=== PATIENT | female | born 1975 | race American Indian/Alaskan Native ===

== ENCOUNTER 2017-06-06 11:11 | Outpatient (CLI) | payer BC | END 2017-06-06 11:12 | disposition home or self-care (01) | LOC: LABHHL 11:11 | PROVIDERS: ATTEND Obstetrics & Gynecology | DX: N85.00 Endometrial hyperplasia, unspecified (principal) | CPT/HCPCS: 88305 ==

== ENCOUNTER 2017-10-18 06:57 | Outpatient (CLI) | payer BC ==
[2017-10-18 08:07] LABS: Basophils % (Auto) 0.6 % (0.0-1.8); Hematocrit 32.9 % (30.3-42.9); Hemoglobin 10.9 gm/dl (10.1-14.3); Mean Corpuscular HGB Conc 33 % (30-34); Mean Corpuscular Hemoglobin 29 pg (28-32); Mean Corpuscular Volume 87 fl (79-97); Platelet Count 310 K/mm3 (140-440); Red Blood Count 3.81 M/mm3 (3.65-5.03); Red Cell Distribution Width 17.8 % (13.2-15.2); White Blood Count 5.2 K/mm3 (4.5-11.0)
[2017-10-18 08:26] LABS: Alanine Aminotransferase 10 units/L (7-56); Albumin 3.4 g/dL (3.9-5); Albumin/Globulin Ratio 0.9 %; Alkaline Phosphatase 49 units/L (35-129); Anion Gap 16 mmol/L; BUN/Creatinine Ratio 11; Blood Urea Nitrogen 8 mg/dL (7-17); Calcium 8.8 mg/dL (8.4-10.2); Carbon Dioxide 24 mmol/L (22-30); Chloride 102.9 mmol/L (98-107); Cholesterol 181 mg/dL (50-199); Glucose 85 mg/dL (65-100); HDL Cholesterol 67 mg/dL (40-59); LDL Cholesterol,Direct 94 mg/dL (50-130); Potassium 3.8 mmol/L (3.6-5.0); Sodium 139 mmol/L (137-145); Total Protein 7.4 g/dL (6.3-8.2); Triglycerides 104 mg/dL (2-149)
--- NOTE | 2017-10-18 15:53 | Mammography Report ---
Bilateral digital screening mammogram with CAD. Comparison study is dated August 20, 2016. Scattered fibroglandular densities are present. In the upper-outer quadrant of the right breast, there is a new small somewhat rounded parenchymal asymmetry. No architectural distortion or suspicious calcifications. Left breast is unremarkable. Impression: Right parenchymal asymmetry. BI-RADS code: 0. Recommendation: Spot compression images, 90 degree view, and ultrasound if needed.
[2017-10-24 13:28] LABS: Vitamin D, 25-OH, Total 34 ng/mL (30-100)
== END 2017-10-18 06:58 | disposition home or self-care (01) ==
LOC: MAMMO 06:57
PROVIDERS: ATTEND Internal Medicine
DX: Z12.31 Encounter for screening mammogram for malignant neoplasm of breast (principal); I10 Essential (primary) hypertension
CPT/HCPCS: 36415; 80053; 80061; 82306; 84443; 85025; G0202; 77067

== ENCOUNTER 2017-10-31 06:17 | Outpatient (CLI) | payer BC ==
--- NOTE | 2017-10-31 10:08 | Mammography Report ---
Right mammogram: Additional imaging performed based on screening exam of October 18. The asymmetry identified on recent screening exam is no longer present with the additional compression images. No significant change identified when compared to prior exam in 2016. Impression: No significant findings. Recommendation: Annual mammogram followup. BI-RADS CATEGORY: 1 = Negative ACR BI-RADS MAMMOGRAPHIC CODES: 0 = Needs additional imaging evaluation; 1 = Negative; 2 = Benign; 3 = Probably benign; 4 = Suspicious; 5 = Malignant; 6 = Known biopsy-proven malignancy COMMENT: 1. Dense breast tissue, i.e., adenosis, fibrocystic changes, etc., may obscure an underlying neoplasm. 2. Approximately 10% of cancers are not detected with mammography. 3. A negative mammography report should not delay biopsy if a clinically suspicious mass is present.
== END 2017-10-31 06:18 | disposition home or self-care (01) ==
LOC: MAMMO 06:17
PROVIDERS: ATTEND Nurse Practitioner
DX: R92.8 Other abnormal and inconclusive findings on diagnostic imaging of breast (principal); I10 Essential (primary) hypertension; D64.9 Anemia, unspecified
CPT/HCPCS: G0206-RT

== ENCOUNTER 2018-02-04 02:03 | Emergency (ER) | payer BC ==
[2018-02-04 02:45] VITALS: BP 154/101
[2018-02-04] MEDS ORDERED: NORCO 5/325 ONE (05:13)
[2018-02-04] MEDS ORDERED: ZOFRAN ODT ONE (05:13)
[2018-02-04] MEDS ORDERED: ZOFRAN ODT PO ONE (05:31)
[2018-02-04] MEDS ORDERED: NORCO 5/325 PO ONE ×2 (05:31→05:33)
--- NOTE | 2018-02-04 05:33 | Emergency Department Report ---
ED ENT HPI - General Chief complaint: Dental/Oral Stated complaint: TOOTHACHE Time Seen by Provider: 02/04/18 04:36 Source: patient Mode of arrival: Ambulatory Limitations: No Limitations - History of Present Illness Initial comments: 42-year-old female past medical history hypertension presents with complaint of left upper toothache for 3-4 days. Patient is awake alert and oriented 3 fully lucid drooling or trismus noted on exam. Patient denies any pus or blood drainage from mouth. Denies fevers chills nausea or vomiting. States that pain is currently 7 out of 10. Patient states she took Tylenol with codeine and Motrin at home with minimal relief of her symptoms. She states she has artery plan to see a dentist in 4 days for urination and possible root canal of this tooth. Patient states she had a filling in this tooth which has come loose and needs to be addressed. MD complaint: tooth pain Onset/Timin -: days(s) Severity: moderate Quality: aching Consistency: constant Worsens with: eating Context- Dental: history of dental caries, poor dental care - Related Data Home Medications Medication Instructions Recorded Confirmed Last Taken Losartan Potassium 100 mg PO DAILY 11/03/16 11/10/16 11/09/16 23:55 Previous Rx's Medication Instructions Recorded Last Taken Type Ibuprofen [Motrin] 800 mg PO Q8HR PRN #60 tablet 11/10/16 Unknown Rx oxyCODONE /ACETAMINOPHEN [Percocet 1 tab PO Q6HR PRN #30 tablet 11/10/16 Unknown Rx 5/325] Amoxicillin [Trimox CAP] 500 mg PO Q8H #21 capsule 02/04/18 Unknown Rx Benzocaine [Orajel Liquid 20%] 1 ml MM Q6HR PRN #1 bottle 02/04/18 Unknown Rx Chlorhexidine Mouthwash [Peridex] 15 ml MM BID #1 bottle 02/04/18 Unknown Rx HYDROcodone/APAP 5-325 [[place] 1 each PO Q6HR PRN #12 tablet 02/04/18 Unknown Rx 5/325] Ibuprofen [Motrin] 600 mg PO Q8H PRN #20 tablet 02/04/18 Unknown Rx Ondansetron [Zofran Odt] 4 mg PO Q8H PRN #10 tab.rapdis 02/04/18 Unknown Rx metroNIDAZOLE [Metronidazole] 500 mg PO BID #14 tablet 02/04/18 Unknown Rx Allergies Allergy/AdvReac Type Severity Reaction Status Date / Time latex AdvReac Swelling Verified 11/10/16 07:06 ED Dental HPI - General Chief complaint: Dental/Oral Stated complaint: TOOTHACHE Time Seen by Provider: 02/04/18 04:36 Source: patient Mode of arrival: Ambulatory Limitations: No Limitations - Related Data Home Medications Medication Instructions Recorded Confirmed Last Taken Losartan Potassium 100 mg PO DAILY 11/03/16 11/10/16 11/09/16 23:55 Previous Rx's Medication Instructions Recorded Last Taken Type Ibuprofen [Motrin] 800 mg PO Q8HR PRN #60 tablet 11/10/16 Unknown Rx oxyCODONE /ACETAMINOPHEN [Percocet 1 tab PO Q6HR PRN #30 tablet 11/10/16 Unknown Rx 5/325] Amoxicillin [Trimox CAP] 500 mg PO Q8H #21 capsule 02/04/18 Unknown Rx Benzocaine [Orajel Liquid 20%] 1 ml MM Q6HR PRN #1 bottle 02/04/18 Unknown Rx Chlorhexidine Mouthwash [Peridex] 15 ml MM BID #1 bottle 02/04/18 Unknown Rx HYDROcodone/APAP 5-325 [[place] 1 each PO Q6HR PRN #12 tablet 02/04/18 Unknown Rx 5/325] Ibuprofen [Motrin] 600 mg PO Q8H PRN #20 tablet 02/04/18 Unknown Rx Ondansetron [Zofran Odt] 4 mg PO Q8H PRN #10 tab.rapdis 02/04/18 Unknown Rx metroNIDAZOLE [Metronidazole] 500 mg PO BID #14 tablet 02/04/18 Unknown Rx Allergies Allergy/AdvReac Type Severity Reaction Status Date / Time latex AdvReac Swelling Verified 11/10/16 07:06 ED Review of Systems ROS: Stated complaint: TOOTHACHE Other details as noted in HPI Constitutional: denies: chills, fever Eyes: denies: eye pain, eye discharge, vision change ENT: dental pain. denies: ear pain, throat pain Respiratory: denies: cough, shortness of breath, wheezing Cardiovascular: denies: chest pain, palpitations Endocrine: no symptoms reported Gastrointestinal: denies: abdominal pain, nausea, diarrhea Genitourinary: denies: urgency, dysuria, discharge Musculoskeletal: denies: back pain, joint swelling, arthralgia Skin: denies: rash, lesions Neurological: denies: headache, weakness, paresthesias Psychiatric: denies: anxiety, depression Hematological/Lymphatic: denies: easy bleeding, easy bruising ED Past Medical Hx - Past Medical History Hx Hypertension: Yes Hx Renal Disease: No Hx Sickle Cell Disease: Yes (trait only) Hx Seizures: No Hx Asthma: No - Surgical History Past Surgical History?: No - Social History Smoking Status: Never Smoker Substance Use Type: None - Medications Home Medications: Home Medications Medication Instructions Recorded Confirmed Last Taken Type Losartan Potassium 100 mg PO DAILY 11/03/16 11/10/16 11/09/16 23:55 History Ibuprofen [Motrin] 800 mg PO Q8HR PRN #60 tablet 11/10/16 Unknown Rx oxyCODONE /ACETAMINOPHEN [Percocet 1 tab PO Q6HR PRN #30 tablet 11/10/16 Unknown Rx 5/325] Amoxicillin [Trimox CAP] 500 mg PO Q8H #21 capsule 02/04/18 Unknown Rx Benzocaine [Orajel Liquid 20%] 1 ml MM Q6HR PRN #1 bottle 02/04/18 Unknown Rx Chlorhexidine Mouthwash [Peridex] 15 ml MM BID #1 bottle 02/04/18 Unknown Rx HYDROcodone/APAP 5-325 [[place] 1 each PO Q6HR PRN #12 tablet 02/04/18 Unknown Rx 5/325] Ibuprofen [Motrin] 600 mg PO Q8H PRN #20 tablet 02/04/18 Unknown Rx Ondansetron [Zofran Odt] 4 mg PO Q8H PRN #10 tab.rapdis 02/04/18 Unknown Rx metroNIDAZOLE [Metronidazole] 500 mg PO BID #14 tablet 02/04/18 Unknown Rx ED Physical Exam - General Limitations: No Limitations General appearance: alert, in no apparent distress - Head Head exam: Present: atraumatic, normocephalic - Eye Eye exam: Present: normal appearance, PERRL, EOMI - ENT ENT exam: Present: mucous membranes moist - Expanded ENT Exam Expanded Teeth exam: Present: dental tenderness # 1 - Dental Tenderness (cavity here) - Neck Neck exam: Present: normal inspection - Respiratory Respiratory exam: Present: normal lung sounds bilaterally. Absent: respiratory distress - Cardiovascular Cardiovascular Exam: Present: regular rate, normal rhythm. Absent: systolic murmur, diastolic murmur, rubs, gallop - GI/Abdominal GI/Abdominal exam: Present: soft, normal bowel sounds - Extremities Exam Extremities exam: Present: normal inspection - Back Exam Back exam: Present: normal inspection - Neurological Exam Neurological exam: Present: alert, oriented X3 - Psychiatric Psychiatric exam: Present: normal affect, normal mood - Skin Skin exam: Present: warm, dry, intact, normal color. Absent: rash ED Course Vital Signs 02/04/18 02:36 Temperature 98.6 F Pulse Rate 74 Respiratory 18 Rate Blood Pressure 154/101 O2 Sat by Pulse 100 Oximetry ED Medical Decision Making - Medical Decision Making A/P: dental cavities, toothache 1- Motrin when necessary, amoxicillin course, Orajel when necessary, Peridex mouthwash daily basis, short course [place] when necessary, short course Zofran when necessary 2-patient states she has follow-up with a dentist in 4 days this week for possible root canal of tooth with cavity 3- no clinical signs of facial abscess, no Rd's angina, no induration or cellulitis of floor of mouth or tongue 4- patient able to tolerate by mouth before discharge 5- no signs of facial infection. Advised patient that if she does not take antibiotics with follow-up with a dentist as soon as possible that a can result in potentially serious or dangerous infection to develop in jaw or face. Patient stated that she understood these instructions. I advised patient to return to the ED for any persistent unrelenting nausea or vomiting fever or chills or headaches. Critical care attestation.: If time is entered above; I have spent that time in minutes in the direct care of this critically ill patient, excluding procedure time. ED Disposition Clinical Impression: Toothache Disposition: TO HOME OR SELFCARE Is pt being admited?: No Does the pt Need Aspirin: No Condition: Stable Instructions: Dental Caries (ED), Toothache (ED) Prescriptions: Amoxicillin [Trimox CAP] 500 mg PO Q8H #21 capsule Benzocaine [Orajel Liquid 20%] 1 ml MM Q6HR PRN #1 bottle PRN Reason: Toothache Chlorhexidine Mouthwash [Peridex] 15 ml MM BID #1 bottle HYDROcodone/APAP 5-325 [[place] 5/325] 1 each PO Q6HR PRN #12 tablet PRN Reason: Pain Ibuprofen [Motrin] 600 mg PO Q8H PRN #20 tablet PRN Reason: Pain metroNIDAZOLE [Metronidazole] 500 mg PO BID #14 tablet Ondansetron [Zofran Odt] 4 mg PO Q8H PRN #10 tab.rapdis PRN Reason: Nausea Referrals: [facility] [Outside] - 3-5 Days Forms: Work/School Release Form(ED) Time of Disposition: 05:35
[2018-02-04] MEDS ORDERED: LIDOCAINE VISCOUS 2% MM NR (05:45)
== END 2018-02-04 05:51 | disposition home or self-care (01) ==
LOC: ED 02:03
DX: K08.89 Other specified disorders of teeth and supporting structures (principal); I10 Essential (primary) hypertension; Z91.040 Latex allergy status
CPT/HCPCS: 99282; Q0162

== ENCOUNTER 2018-04-07 08:20 | Outpatient (CLI) | payer BC ==
--- NOTE | 2018-04-12 12:53 | Ultrasound Report ---
Pelvic ultrasound: Abnormal uterine bleeding. Endovaginal and transabdominal imaging demonstrates an anteverted uterus measuring approximately 7.5 x 7.8 x 12.9 cm. There are 3 solid uterine masses identified. One is exophytic lesion extending from the fundus measuring 5.7 cm. There are 2 additional masses in the mid uterus. Anteriorly it measures 4.4 cm and posteriorly 4.6 cm. The uterus is otherwise obscured by the masses. A short segment of endometrium is questionably identified and has a thickness of 2.1 mm. Several nabothian cysts are present in the cervix. The ovaries are not visualized by either approach. No free fluid identified. Impression: 1. Multiple uterine fibroids. 2. Limited visualization of the endometrium which appears to be of normal thickness. 3. Nonvisualized ovaries.
== END 2018-04-07 08:21 | disposition home or self-care (01) ==
LOC: SPVWC 08:20
PROVIDERS: ATTEND Obstetrics & Gynecology
DX: D25.9 Leiomyoma of uterus, unspecified (principal); N93.8 Other specified abnormal uterine and vaginal bleeding; D64.9 Anemia, unspecified; I10 Essential (primary) hypertension; E66.9 Obesity, unspecified
CPT/HCPCS: 76830; 76856

== ENCOUNTER 2018-05-15 06:57 | Outpatient (CLI) | payer BC ==
[2018-05-15 07:41] LABS: Blood Urea Nitrogen 14 mg/dL (7-17)
== END 2018-05-15 06:58 | disposition home or self-care (01) ==
LOC: MRI 06:57
PROVIDERS: ATTEND Radiology Vascular & Interventional Radiology
DX: R10.2 Pelvic and perineal pain (principal); N93.9 Abnormal uterine and vaginal bleeding, unspecified; I10 Essential (primary) hypertension; E66.9 Obesity, unspecified; D64.9 Anemia, unspecified
CPT/HCPCS: 36415; 82565; 84520

== ENCOUNTER 2019-09-07 06:23 | Outpatient (CLI) | payer BC ==
[2019-09-07 06:43] LABS: Basophils % (Auto) 1.1 % (0.0-1.8); Eosinophils # (Auto) 0.1 K/mm3 (0.0-0.4); Eosinophils % (Auto) 2.2 % (0.0-4.3); Hematocrit 37.2 % (30.3-42.9); Hemoglobin 12.1 gm/dl (10.1-14.3); Lymphocytes % (Auto) 46.6 % (13.4-35.0); Mean Corpuscular HGB Conc 33 % (30-34); Mean Corpuscular Volume 88 fl (79-97); Monocytes # (Auto) 0.4 K/mm3 (0.0-0.8); Monocytes % (Auto) 8.9 % (0.0-7.3); Platelet Count 369 K/mm3 (140-440); Red Blood Count 4.25 M/mm3 (3.65-5.03); Red Cell Distribution Width 15.1 % (13.2-15.2)
[2019-09-07 06:55] LABS: Alanine Aminotransferase 6 units/L (7-56); Albumin 3.6 g/dL (3.9-5); BUN/Creatinine Ratio 16; Blood Urea Nitrogen 14 mg/dL (7-17); Calcium 9.2 mg/dL (8.4-10.2); Chol/HDL Ratio 2.89 %; HDL Cholesterol 75 mg/dL (40-59); Hemolysis Index 0; LDL Cholesterol,Direct 141 mg/dL (50-130)
[2019-09-07 07:02] LABS: Free T4 (Free Thyroxine) 1.23 ng/dL (0.76-1.46)
[2019-09-12 13:31] LABS: Vitamin D, 25-OH, D2 <4 ng/mL
== END 2019-09-07 06:24 | disposition home or self-care (01) ==
LOC: LAB 06:23
DX: Z01.419 Encounter for gynecological examination (general) (routine) without abnormal findings (principal); I10 Essential (primary) hypertension
CPT/HCPCS: 36415; 80053; 80061; 82306; 84439; 84443; 85025

== ENCOUNTER 2019-11-08 12:48 | Outpatient (CLI) | payer BC ==
--- NOTE | 2019-11-08 15:02 | Mammography Report ---
DIGITAL SCREENING MAMMOGRAM WITH CAD, 11/08/2019 INDICATION: Routine screening mammography. TECHNIQUE: Digital bilateral 2D mammography was obtained in the craniocaudal and mediolateral obliq ue projections. This examination was interpreted with the benefit of Computer-Aided Detection analysi s. COMPARISON: 11/02/2018 FINDINGS: Breast Density: There are scattered areas of fibroglandular density. There is no evidence of dominant mass, suspicious calcifications or architectural distortion in eithe r breast. IMPRESSION: No mammographic evidence of malignancy. Follow up recommendation: Routine yearly BI-RADS Category 1: Negative. A "normal" or negative report should not discourage follow up or biopsy of a clinically significant f inding. A written summary of these findings will be mailed to the patient. The patient will be entered into a mammography reporting system which will generate a reminder letter for the patient's next appointmen t at the appropriate interval. The [employer] recommends yearly mammograms starting at age 40 and continuing as l thompson as a woman is in good health. Breast MRI is recommended for women with an approximate 20-25% or greater lifetime risk of breast cancer, including women with a strong family history of breast or ova mary cancer or who have been treated for Hodgkin's disease. Signer Name: Jabari Angel MD Signed: 11/08/2019 2:58 PM Workstation Name: [id number]
== END 2019-11-08 12:49 | disposition home or self-care (01) ==
LOC: MAMMO 12:48
PROVIDERS: ATTEND Internal Medicine
DX: Z12.31 Encounter for screening mammogram for malignant neoplasm of breast (principal)
CPT/HCPCS: 77067

== ENCOUNTER 2020-01-14 08:23 | Outpatient (CLI) | payer BC ==
--- NOTE | 2020-01-14 15:31 | Cat Scan Report ---
CT SINUSES HISTORY: Chronic maxillary sinusitis COMPARISON: None. TECHNIQUE: Axial images of the sinuses were obtained. Coronal reformats were generated. All CT scans at this location are performed using CT dose reduction for ALARA by means of automated exposure cont rol. CONTRAST: None. FINDINGS: Nasal septum: No significant deviation. Paranasal sinuses: Clear. Ostiomeatal complex: No significant abnormality. Nasal turbinates: No significant abnormality. Visualized mastoid air cells: No significant abnormality. Visualized intracranial space: No significant abnormality. Visualized orbits: No significant abnormality. Additional findings: None. IMPRESSION: Normal exam. Signer Name: Franklyn Garcia Jr, MD Signed: 01/14/2020 3:26 PM Workstation Name: [id number]
== END 2020-01-14 08:24 | disposition home or self-care (01) ==
LOC: CT 08:23
PROVIDERS: ATTEND Otolaryngology
DX: J32.0 Chronic maxillary sinusitis (principal)
CPT/HCPCS: 70486

== ENCOUNTER 2020-10-08 08:58 | Outpatient (CLI) | payer BC ==
[2020-10-08 09:21] LABS: Basophils % (Auto) 0.8 % (0.0-1.8); Eosinophils % (Auto) 0.5 % (0.0-4.3); Hematocrit 36.3 % (30.3-42.9); Hemoglobin 11.9 gm/dl (10.1-14.3); Lymphocytes # (Auto) 1.4 K/mm3 (1.2-5.4); Mean Corpuscular HGB Conc 33 % (30-34); Mean Corpuscular Volume 89 fl (79-97); Monocytes # (Auto) 0.4 K/mm3 (0.0-0.8); Monocytes % (Auto) 7.5 % (0.0-7.3); Platelet Count 341 K/mm3 (140-440); Red Blood Count 4.07 M/mm3 (3.65-5.03); Red Cell Distribution Width 15.1 % (13.2-15.2)
[2020-10-08 09:41] LABS: Alanine Aminotransferase 11 units/L (7-56); Albumin 3.6 g/dL (3.9-5); BUN/Creatinine Ratio 14; Blood Urea Nitrogen 13 mg/dL (7-17); Calcium 9.3 mg/dL (8.4-10.2); Chol/HDL Ratio 3.02 %; HDL Cholesterol 83 mg/dL (40-59); Hemolysis Index 0; LDL Cholesterol,Direct 168 mg/dL (50-130)
== END 2020-10-08 08:59 | disposition home or self-care (01) ==
LOC: LAB 08:58
PROVIDERS: ATTEND Internal Medicine
DX: E55.9 Vitamin D deficiency, unspecified (principal); Z00.00 Encounter for general adult medical examination without abnormal findings
CPT/HCPCS: 36415; 80053; 80061; 82306; 84443; 85025

== ENCOUNTER 2020-10-13 13:27 | Emergency (ER) | payer BC ==
[2020-10-13 14:05] VITALS: BP 135/87
--- NOTE | 2020-10-13 15:25 | XRay Report ---
RIGHT ANKLE 3 VIEWS INDICATION / CLINICAL INFORMATION: ankle pain COMPARISON: None available. FINDINGS: BONES / JOINT(S): No acute fracture or subluxation. No significant arthritis. SOFT TISSUES: No significant abnormality. ADDITIONAL FINDINGS: None. Signer Name: Tuan Coffman MD Signed: 10/13/2020 3:20 PM Workstation Name: [id number]
--- NOTE | 2020-10-13 15:38 | Emergency Department Report ---
ED Lower Extremity HPI - General Chief Complaint: Extremity Problem,Nontraumatic Stated Complaint: RT ANKLE PAIN Time Seen by Provider: 10/13/20 14:13 Source: patient Mode of arrival: Ambulatory Limitations: No Limitations - History of Present Illness Initial Comments: This is a 45-year-old female nontoxic, well nourished in appearance, no acute signs of distress presents to the ED with c/o of right ankle pain 1 day. Patient denies any trauma or injuries. Patient denies any numbness, tingling, fever, chills, nausea, vomiting, chest pain, shortness of breath, headache, stiff neck. Patient denies any joint swelling or joint redness. Patient denies decreased range of motion. Patient stated has decreased gait due to pain. Patient denies any drug allergies or significant past medical history. MD Complaint: ankle injury -: days(s) Injury: Knee: Right Severity: mild Severity scale (0 -10): 8 Improves With: immobilization Worsens With: weight bearing, movement, palpation Associated Symptoms: able to partially bear weight. denies: snap/pop sensation, swelling, numbness, tingling, unable to bear weight - Related Data Home Medications Medication Instructions Recorded Confirmed Last Taken Losartan Potassium 100 mg PO DAILY 11/03/16 11/10/16 11/09/16 23:55 Previous Rx's Medication Instructions Recorded Last Taken Type Ibuprofen [Motrin] 800 mg PO Q8HR PRN #60 tablet 11/10/16 Unknown Rx oxyCODONE /ACETAMINOPHEN [Percocet 1 tab PO Q6HR PRN #30 tablet 11/10/16 Unknown Rx 5/325] Amoxicillin [Trimox CAP] 500 mg PO Q8H #21 capsule 02/04/18 Unknown Rx Benzocaine [Orajel Liquid 20%] 1 ml MM Q6HR PRN #1 bottle 02/04/18 Unknown Rx Chlorhexidine Mouthwash [Peridex] 15 ml MM BID #1 bottle 02/04/18 Unknown Rx HYDROcodone/APAP 5-325 [Bend 1 each PO Q6HR PRN #12 tablet 02/04/18 Unknown Rx 5/325] Ibuprofen [Motrin] 600 mg PO Q8H PRN #20 tablet 02/04/18 Unknown Rx Ondansetron [Zofran Odt] 4 mg PO Q8H PRN #10 tab.rapdis 02/04/18 Unknown Rx metroNIDAZOLE [Metronidazole] 500 mg PO BID #14 tablet 02/04/18 Unknown Rx Naproxen 500 mg PO Q12H PRN #12 tablet 10/13/20 Unknown Rx Allergies Allergy/AdvReac Type Severity Reaction Status Date / Time latex AdvReac Swelling Verified 11/10/16 07:06 ED Review of Systems ROS: Stated complaint: RT ANKLE PAIN Other details as noted in HPI Comment: All other systems reviewed and negative Constitutional: denies: chills, fever Eyes: denies: eye pain, eye discharge, vision change ENT: denies: ear pain, throat pain Respiratory: denies: cough, shortness of breath, wheezing Cardiovascular: denies: chest pain, palpitations Endocrine: no symptoms reported Gastrointestinal: denies: abdominal pain, nausea, diarrhea Genitourinary: denies: urgency, dysuria, discharge Musculoskeletal: denies: back pain, joint swelling, arthralgia Skin: denies: rash, lesions Neurological: denies: headache, weakness, paresthesias Psychiatric: denies: anxiety, depression Hematological/Lymphatic: denies: easy bleeding, easy bruising ED Past Medical Hx - Past Medical History Previous Medical History?: Yes Hx Hypertension: Yes Hx Renal Disease: No Hx Sickle Cell Disease: Yes (trait only) Hx Seizures: No Hx Asthma: No - Surgical History Past Surgical History?: Yes Additional Surgical History: - Social History Smoking Status: Never Smoker Substance Use Type: None - Medications Home Medications: Home Medications Medication Instructions Recorded Confirmed Last Taken Type Losartan Potassium 100 mg PO DAILY 11/03/16 11/10/16 11/09/16 23:55 History Ibuprofen [Motrin] 800 mg PO Q8HR PRN #60 tablet 11/10/16 Unknown Rx oxyCODONE /ACETAMINOPHEN [Percocet 1 tab PO Q6HR PRN #30 tablet 11/10/16 Unknown Rx 5/325] Amoxicillin [Trimox CAP] 500 mg PO Q8H #21 capsule 02/04/18 Unknown Rx Benzocaine [Orajel Liquid 20%] 1 ml MM Q6HR PRN #1 bottle 02/04/18 Unknown Rx Chlorhexidine Mouthwash [Peridex] 15 ml MM BID #1 bottle 02/04/18 Unknown Rx HYDROcodone/APAP 5-325 [Bend 1 each PO Q6HR PRN #12 tablet 02/04/18 Unknown Rx 5/325] Ibuprofen [Motrin] 600 mg PO Q8H PRN #20 tablet 02/04/18 Unknown Rx Ondansetron [Zofran Odt] 4 mg PO Q8H PRN #10 tab.rapdis 02/04/18 Unknown Rx metroNIDAZOLE [Metronidazole] 500 mg PO BID #14 tablet 02/04/18 Unknown Rx Naproxen 500 mg PO Q12H PRN #12 tablet 10/13/20 Unknown Rx ED Physical Exam - General Limitations: No Limitations General appearance: alert, in no apparent distress - Head Head exam: Present: atraumatic, normocephalic - Eye Eye exam: Present: normal appearance - Neck Neck exam: Present: normal inspection, full ROM - Respiratory Respiratory exam: Absent: respiratory distress - Cardiovascular Cardiovascular Exam: Present: regular rate. Absent: gallop - Extremities Exam Extremities exam: Present: full ROM, tenderness, normal capillary refill. Absent: joint swelling - Expanded Lower Extremity Exam Right Hip exam: Present: normal inspection, full ROM. Absent: tenderness, swelling Upper Leg exam: Present: normal inspection, full ROM. Absent: tenderness, swelling Knee exam: Present: normal inspection, full ROM. Absent: tenderness, swelling Lower Leg exam: Present: normal inspection, full ROM. Absent: tenderness, swelling Ankle exam: Present: full ROM, tenderness. Absent: swelling, abrasion, laceration, ecchymosis, deformity, crepidus, dislocation, erythema, anterior draw sign Foot/Toe exam: Present: normal inspection, full ROM. Absent: tenderness, swelling Neuro vascular tendon exam: Present: no vascular compromise Gait: Positive: observed and limited by pain 1 - pain here - Back Exam Back exam: Present: normal inspection, full ROM - Neurological Exam Neurological exam: Present: alert, oriented X3, normal gait - Psychiatric Psychiatric exam: Present: normal affect, normal mood - Skin Skin exam: Present: warm, dry, intact, normal color. Absent: rash ED Course Vital Signs 10/13/20 14:04 Temperature 98.1 F Pulse Rate 72 Respiratory 16 Rate Blood Pressure 135/87 [Right] O2 Sat by Pulse 98 Oximetry - Reevaluation(s) Reevaluation #1: 10/13/20 15:38 Patient is speaking in full sentences with no signs of distress noted. ED Lower Extremity MDM - Radiology Data Referring Physician: NISHANT VELAZQUEZ Patient Name: BEREKET LUCAS Date of : 1975 Sex: Female Report Date: 2020-10-13 Report Status: Finalized [facility] [address] [place] [address] XR ay Report Signed Patient: BEREKET LUCAS MR#: [id number] : 1975 Acct:[id number] Age/Sex: 45 / F ADM Date: 10/13/20 Loc: ED Attending Dr: Ordering Physician: NISHANT VELAZQUEZ NP Date of Service: 10/13/20 Procedure(s): XR ankle 3+V RT Accession Number(s): [id number] cc: NISHANT VELAZQUEZ NP Fluoro Time In Minutes: RIGHT ANKLE 3 VIEWS INDICATION / CLINICAL INFORMATION: ankle pain COMPARISON: None available. FINDINGS: BONES / JOINT(S): No acute fracture or subluxation. No significant arthritis. SOFT TISSUES: No significant abnormality. ADDITIONAL FINDINGS: None. Signer Name: Tuan Coffman MD Signed: 10/13/2020 3:20 PM Workstation Name: [id number] Transcribed By: Dictated By: Tuan Coffman MD Electronically Authenticated By: Tuan Coffman MD Signed Date/Time: 10/13/20 1520 DD/ 1519 TD/TT: - Medical Decision Making This is a 45-year-old female that presents with right ankle strain. Patient is stable and was examined by me. I referred patient to an orthopedic doctor for further evaluation for possible MRI. X-ray has been obtained and dictated by the radiologist. Patient is notified of the x-ray report with noted by the patient. Patient does have normal gait with no tenderness and no joint swelling. No ecchymosis. no joint redness or swelling. Not warm to touch. No signs of cellulites present. Patient received loida wrap. Patient was instructed to RICE therapy. Patient is discharged with Motrin. At time of discharge, the patient does not seem toxic or ill in appearance. No acute signs of distress noted. Patient agrees to discharge treatment plan of care. No further questions noted by the patient. Critical care attestation.: If time is entered above; I have spent that time in minutes in the direct care of this critically ill patient, excluding procedure time. ED Disposition Clinical Impression: Right ankle strain Qualifiers: Encounter type: initial encounter Qualified Code(s): S96.911A - Strain of unspecified muscle and tendon at ankle and foot level, right foot, initial encounter Disposition: TO HOME OR SELFCARE Is pt being admited?: No Does the pt Need Aspirin: No Condition: Stable Instructions: Ankle Sprain, RICE Therapy for Routine Care of Injuries, [id number] Additional Instructions: Follow-up with a orthopedic doctor in 3-5 days or if symptoms worsen and continue return to emergency room as soon as possible. No physical activity that extremity until cleared by orthopedic doctor Prescriptions: Naproxen 500 mg PO Q12H PRN #12 tablet PRN Reason: Pain , Severe (7-10) Referrals: PRIMARY CARE, [Primary Care Provider] - 3-5 Days APURVA PYLE MD [Staff Physician] - 3-5 Days Forms: Work/School Release Form(ED)
== END 2020-10-13 15:56 | disposition home or self-care (01) ==
LOC: ED 13:27
DX: S96.911A Strain of unspecified muscle and tendon at ankle and foot level, right foot, initial encounter (principal); I10 Essential (primary) hypertension; D57.3 Sickle-cell trait; Z91.040 Latex allergy status; X58.XXXA Exposure to other specified factors, initial encounter; Y93.89 Activity, other specified; Y92.89 Other specified places as the place of occurrence of the external cause; Y99.8 Other external cause status

== ENCOUNTER 2020-11-11 07:32 | Outpatient (CLI) | payer BC ==
--- NOTE | 2020-11-11 12:02 | Mammography Report ---
DIGITAL SCREENING MAMMOGRAM WITH CAD, 11/11/2020 CLINICAL INFORMATION / INDICATION: Routine screening mammography. TECHNIQUE: Digital bilateral 2D mammography was obtained in the craniocaudal and mediolateral obliqu e projections. This examination was interpreted with the benefit of Computer-Aided Detection analysis . COMPARISON: 11/02/2018 FINDINGS: Breast Density: There are scattered areas of fibroglandular density. No dominant mass, suspicious calcifications, or architectural distortion in either breast. No interval change. IMPRESSION: No mammographic evidence of malignancy. Follow up recommendation: Routine yearly BI-RADS Category 1: Negative. A "normal" or negative report should not discourage follow up or biopsy of a clinically significant f inding. A written summary of these findings will be mailed to the patient. The patient will be entered into a mammography reporting system which will generate a reminder letter for the patient's next appointmen t at the appropriate interval. The [employer] recommends yearly mammograms starting at age 40 and continuing as l thompson as a woman is in good health. Breast MRI is recommended for women with an approximate 20-25% or greater lifetime risk of breast cancer, including women with a strong family history of breast or ova mary cancer or who have been treated for Hodgkin's disease. Signer Name: Sita Canada MD Signed: 11/11/2020 11:57 AM Workstation Name: [id number]
== END 2020-11-11 07:33 | disposition home or self-care (01) ==
LOC: MAMMO 07:32
PROVIDERS: ATTEND Internal Medicine
DX: Z12.31 Encounter for screening mammogram for malignant neoplasm of breast (principal)
CPT/HCPCS: 77067